=== PATIENT | male | born 1945 | race Hispanic/Latino ===

== ENCOUNTER 2018-05-08 06:25 | Day surgery (SDC) | payer MEDICARE ==
[~2018-05-08 06:25] MED LIST: ADRENALIN ONE; XYLOCAINE MPF 1% INFILTRATI ONE
[2018-05-08] MEDS ORDERED: TETRACAINE 0.5% ONE (07:20)
[2018-05-08] MEDS: VIGAMOX OD SCH ×3 (07:20→07:30)
--- NOTE | 2018-05-08 07:34 | Anesthesia Consultation ---
Anesthesia Consult and Med Hx Date of service: 05/08/18 - Airway Anesthetic Teeth Evaluation: Good ROM Head & Neck: Adequate Mental/Hyoid Distance: Adequate Mallampati Class: Class III Intubation Access Assessment: Possibly Difficult - Pulmonary Exam CTA: Yes - Cardiac Exam Cardiac Exam: RRR - Pre-Operative Health Status ASA Pre-Surgery Classification: ASA1 Proposed Anesthetic Plan: MAC - Pulmonary Hx Smoking: No Hx Asthma: No Hx Respiratory Symptoms: No - Cardiovascular System Hx Hypertension: No Hx Heart Attack/AMI: No - Central Nervous System Hx Seizures: No CVA: No Hx Psychiatric Problems: No - Gastrointestinal Hx Gastroesophageal Reflux Disease: No - Endocrine Hx Renal Disease: No Hx Liver Disease: No Hx Insulin Dependent Diabetes: No Hx Non-Insulin Dependent Diabetes: No Hx Thyroid Disease: No - Other Systems Hx Alcohol Use: Yes (Occas) 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 MAC vs GA w/ LMA pending surgeon preference.
--- NOTE | 2018-05-08 07:35 | Anesthesia Day of Surgery ---
Anesthesia Day of Surgery - Day of Surgery Patient Examined: Yes Patient H&P Reviewed: Yes Patient is NPO: Yes
[2018-05-08] MEDS ORDERED: SUBLIMAZE ONE (08:28)
[2018-05-08] MEDS ORDERED: VERSED ONE ×2 (08:28→09:39)
[2018-05-08] MEDS ORDERED: ZOFRAN IV PRN (09:30)
[2018-05-08] MEDS ORDERED: SUBLIMAZE IV PRN (09:30)
[2018-05-08] MEDS ORDERED: ROBINUL ONE (09:33)
[2018-05-08] MEDS ORDERED: ANCEF ONE (09:36)
[2018-05-08] MEDS ORDERED: DECADRON ONE (09:36)
[2018-05-08] MEDS ORDERED: BSS OD ONE (09:40)
[2018-05-08] MEDS ORDERED: XYLOCAINE MPF 1% INFILTRATI ONE (09:42)
[2018-05-08] MEDS ORDERED: DUOVISC VISCOELASTIC INTRAOCULA ONE (09:48)
[2018-05-08] MEDS ORDERED: BSS PLUS IO ONE (09:48)
[2018-05-08] MEDS ORDERED: PRED FORTE 1% OD SCH (10:00)
[2018-05-08] MEDS ORDERED: TETRACAINE 0.5% OD SCH (10:00)
--- NOTE | 2018-05-08 10:35 | Operative Report ---
Operative Report Operative Report: PATIENT NAME: DATE OF : DATE OF SURGERY: 03/08/2019 PREOPERATIVE DIAGNOSIS: Fuchs' dystrophy right eye POSTOPERATIVE DIAGNOSIS: Same PROPOSED PROCEDURE: Endothelial keratoplasty with Descemets stripping/Penetrating keratoplasty, *right eye ADDITIONAL PROCEDURE: NONE OPERATIVE PROCEDURE: 1. Endothelial keratoplasty with Descemets stripping/Penetrating keratoplasty, right eye SURGEON: Mireya Leonard MD HEEL SEWER SURGEON: None ANESTHESIA: Monitored anesthesia care in combination with topical and intracameral anesthesia because of the established specific risk of reflux, arrhythmias, or anxiety attacks associated with ocular manipulation, as well as the difficulty of the early childhood education worker to manage such potentially catastrophic events while simultaneously attempting to complete the surgical procedure and was deemed necessary for the patient's safety to have an anesthesiologist was present during the procedure whenever possible. The anesthesiologist was utilized to regulate the intravenous sedation of the patient so the patient was cooperative yet not asleep in order for the patient to successfully maintain fixation of the eye on the operating light of the microscope. RAISIN WASHER: COMPLICATIONS: None ALLERGIES: Codeine Beef, PREOPERATIVE NOTE: The patient is a gentleman who has the diagnosis or diagnoses of Fuchs dystrophy. Examination of the posterior portion of the eyes by indirect ophthalmoscopy shows the optic nerve and retina to be normal. The patient has decompensation of the cornea with dysfunction and dystrophy of the corneal endothelium. Donor tissue will be used to replace the dysfunctional endothelium utilizing a penetrating technique into the anterior chamber. This complicated technique allows the patient to maintain structural integrity of the eye making it much more resistant to traumatic rupture than a standard keratoplasty. It also allows a larger than average surface area of transplanted endothelium which hopefully in the long run will allow for longer endothelial viability and success for the surgery. It also provides for faster visual recovery and less anisometropia than previous keratoplasty techniques. It is technically more difficult because of the complicated preparation of the donor tissue and insertion of the donor tissue into the anterior chamber with fixation of the tissue without direct suturing of the donor. This also provides an increased chance of dislocation of the donor tissue in the immediate postoperative period compared to standard keratoplasty techniques. This type of corneal transplant takes over twice as long as a standard corneal transplant. Moreover, the preparation and end of surgery are more time consuming for both the surgeon and staff: the blocking of the eye requires a longer setup time as noted, the procedure itself is more complex, and the patient needs to lay face up and flat in the recovery area for a specified period of time prior to discharge. Preoperatively, it was discussed with the patient that they could have either a standard corneal transplant or a variation of a penetrating keratoplasty where only the posterior layers of the cornea are transplanted. With this new technique, as with any corneal transplant, there is always the pos sibility that the surgery may need to be repeated; or, in this case, also repeated with a standard corneal transplant if the visual result is not satisfactory. However, some of the advantages of this current technique are much more rapid visual recovery and a tectonically stronger eye after surgery. PROGNOSIS: Excellent INDICATIONS FOR SURGERY: The patient is undergoing surgery with the hope of eliminating or improving these visual difficulties. OPERATIVE REPORT: The patient was taken into the preoperative area and evaluated medically and found from a systemic standpoint to be suitable for the planned surgery and anesthesia. The patient was then sedated and monitored by anesthesia. The patient was next taken into the operating room where they were positioned on the operating bed. They were given drops of topical anesthetic in the operative eye. Betadine was used to scrub the periorbital area, eyelids, adjacent cheek and forehead. The prepped area was dried with sterile gauze. The patient was draped, and a wire speculum was placed between the eyelids. The horizontal diameter of the cornea was measured with calipers to assist in determining the proper sizing of the trephination blade to be used for donor incision and for removal of the patients central Descemets membrane. PREPARATION OF DONOR TISSUE: Prior to surgery, the donor tissue was inspected and found to be adequate for the planned procedure. The involved eye bank provided the usual demographic information on the donor including age, cause of , necessary screening and blood work. The results were negative regarding possible transmission of diseases from the donor. Our inspection of the donor tissue showed no gross abnormalities. The patients donor cornea was prepared by the eye bank to separate the anterior and posterior portions of the cornea for the planned surgery. The cornea was inspected prior to surgery and found to be suitable and at the time of surgery was taken out of the storage solution and carefully centered on the cutting block with the centration based on the centration zoie that was made the eye bank on the external surface of the cornea-the stromal side. The donor tissue was removed from the tissue storage container by carefully removing it with forceps taking care not to touch the endothelial surface but only the scleral rim Suction was applied, the centration was rechecked to make sure it was perfectly centered. Once the size of the appropriate trephine was determined, the donor was punched with the trephine. The donor cornea was then covered with tissue storage solution and put aside for use later in the surgical procedure. The horizontal corneal diameter was measured and the overall condition of the eye was evaluated to determine which size of trephine would best provide for as large donor button as possible without compromising the angle structures or iris. Once the trephine size was chosen, it was used lightly to zoie the epithelium on the corneal surface to provide a reference for later placement of the donor tissue and for removal of Descemets membrane. This was the same trephine used to punch the donor tissue. Reopen old incision if corneal: The patient had previously had a clear corneal incision of 5.0 mm for corneal surgery. This incision was able to be opened by using a Sinskey hook to separate the superficial area of the wound. A 23-gauge needle hooked up to an infusion of balanced salt solution was inserted through the midperipheral cornea into the anterior chamber. This was used to maintain the anterior chamber while removing Descemets membrane. A modified Vasiliy-Gagan hook was next placed through the stab incision and the hook was used to score Descemets membrane in a circular fashion, essentially scoring a [place] about 1.0 mm smaller than the previously placed reference zoie by the trephine on the epithelium. A specially designed Descemets stripper/scraper was inserted into the eye and carefully extended across the anterior chamber in a manner not to empty the anterior chamber, to damage the iris, or to damage the lens. Starting at the nasal side of the anterior chamber, the stripper was used to catch Descemets membrane at the site of the scoring and the membrane was carefully stripped off the back surface of the cornea. The stripper was first pulled back centrally to loosen Descemets mem brane there and then to each side to help try and remove the central area of Descemets membrane which had been outlined by the scoring. The membrane was then pulled out of the eye through the incision. The removed Descemets membrane was placed on the outer surface of the cornea and carefully unfolded to make sure it was removed in its entirety and that no portion was left in the central cornea. Any indication of retained central membrane was followed by reinsertion of the stripper and further removal of retained membrane. Care was taken during both the scoring and stripping not to unduly push up into the overlying cornea as that can cause tearing of the corneal tissue, producing an irregular surface which can lead to decreased visual recovery and difficulty with adherence of the donor tissue to the recipient. Once it was confirmed that Descemets membrane was removed, the incision was extended with the sharp blade for its full length into the anterior chamber. The anterior chamber was reinflated with balanced salt solution. Funnel: The donor tissue was removed from the cutting block and transferred to the operative field. It was placed on the patients cornea so that the endothelium of the donor was facing up. The tissue storage solution and any blood or other material was allowed to flow off the donor tissue. A small amount of viscoelastic was then placed on the endothelial surface of the donor. Two forceps were then used to grasp an edge of the donor taking care not to actually touch the endothelium and the posterior portion of the donor, which had been previously dissected on the artificial anterior chamber, and the donor gently partially pulled apart about half of the posterior portion from the anterior portion. A Busin Funnel was brought into the operative field and the posterior portion of the donor was pulled onto it. Intraocular forceps were used to pull the tissue into the funnel, essentially making it fold over on itself endothelial side inward. The intraocular forceps were then introduced through a previously made peripheral corneal stab incision in the nasal cornea. The forceps were moved across the anterior chamber to the area of the 5.0 mm incision. The Busin funnel was inserted into the 5.0 mm wound. The forceps grasped the edge of the donor tissue and the tissue was pulled into the eye. Once inside the eye, the forceps released their hold and the funnel was removed. Using a 30-gauge needle, a small stab incision was made in the peripheral cornea and a small amount of air was injected within the folded-over piece of donor tissue in the eye. The air was slowly injected to unfold the donor endothelial side down. Once the donor had unfolded, the anterior chamber was completely filled with air. A Bernadette roller was used to massage the anterior surface of the cornea and to massage the donor tissue into the correct position. The massaging also helped to remove retained air or fluid caught between the donor and recipient tissue. Once the donor was in the correct position and no retained fluid or air was present between the donor and recipient, the timer was started and the anterior chamber was left completely filled with air for the designated time. OTHER SPECIFICS OF THE SURGICAL PROCEDURE: Trephine size: 8.5 mm Horizontal corneal diameter: 11.0 mm Estimated thickness of donor tissue: 65 Time anterior chamber was completely filled with air in the operating room while the donor cornea was allowed to hold in position without any manipulation or massagin minutes The patient laid face up and flat in the recovery room with a partial air bubble to help with further adherence of the donor cornea to the recipient cornea for the following length of time: 45minutes Needle reposition of the donor: The donor button of tissue could not be massaged into the correct position on the recipient cornea. Therefore, a 30- gauge needle was bent at its tip to form a right angle of the peripheral one- third to one-half of the beveled area. This needle was introduced into the anterior chamber and used to grasp the peripheral edge of the donor tissue and pull it into the correct position. Massage was then used to provide good apposition and centration of the tissue. SUBCONJUNCTIVAL INJECTIONS: Decadron 0.1 mL PF MEDICATIONS APPLIED AT END OF SURGERY: 1:1000 epinephrine, Vigamox Pred Forte DISCHARGE SUMMARY: The patient was released in stable condition. The patient and those with the patient were given a written sheet of postoperative instructions and counseling on any abnormal laboratory studies. The patient is to call immediately for difficulties and will otherwise see us in the morning at the office. Mireya Leonard M.D. Date cc: Dictated: Worksheets: Transcribed:
--- NOTE | 2018-05-08 10:37 | Short Stay Summary ---
Short Stay Documentation Date of service: 05/08/18 - History H&P: obtained from office - Allergies and Medications Current Medications: Allergies Beef Containing Products Allergy (Verified 05/06/18 11:26) Hives, swelling codeine Allergy (Verified 05/06/18 11:26) Itching Pork/Porcine Containing Products Allergy (Verified 05/06/18 11:26) Hives, swelling red dye Allergy (Verified 05/06/18 11:26) Hives Home Medications Medication Instructions Recorded Confirmed Last Taken Type Adult One Daily Multivit Tab 1 tab PO DAILY 05/08/18 05/08/18 05/07/18 History Cholecalciferol Vit D3 [Vitamin D3] 1 tab PO DAILY 05/08/18 05/08/18 05/07/18 History [place]-3 Fatty Acids/Fish Oil [Fish 1 each PO DAILY 05/08/18 05/08/18 05/07/18 History Oil 1,000 mg Capsule] Prednisolone Acetate/Pf 1 drop OS QID 05/08/18 05/08/18 05/08/18 05:00 History [Prednisolone Acet 1% Eye Drop] Active Medications Fentanyl (Sublimaze) 50 mcg IV Q5MIN PRN PRN Reason: Pain , Severe (7-10) Stop: 05/08/18 15:00 Moxifloxacin HCl (Vigamox) 1 drops OD Q5MIN ORI Stop: 05/10/18 06:57 Last Admin: 05/08/18 07:30 Dose: 1 drops Documented by: Ondansetron HCl (Zofran) 4 mg IV ONCE PRN PRN Reason: Nausea And Vomiting Stop: 05/08/18 15:00 Prednisolone Acetate (Pred Forte 1%) 1 drops OD QID [facility] - Brief post op/procedure progress note Date of procedure: 05/08/18 Pre-op diagnosis: Fuchs endothelial dystrophy right eye Post-op diagnosis: same Procedure: Descemet's stripping endothelial keratoplasty right eye Anesthesia: MAC, local Surgeon: [facility] TSE Estimated blood loss: minimal Pathology: none Condition: stable - Disposition Condition at discharge: Good Disposition: DC-01 TO HOME OR SELFCARE - Discharge Diagnoses (1) Fuchs endothelial corneal dystrophy type 1 Status: Resolved Short Stay Discharge Plan Follow up with: NATALIE WINKLER MD [Primary Care Provider] - 7 Days
[2018-05-08] MEDS ORDERED: IBUPROFEN PO ONE ×2 (13:15→13:30)
--- NOTE | 2018-05-08 14:19 | Post Anesthesia Evaluation ---
- Post Anesthesia Evaluation Patient Participated: Yes Airway Patent: Yes Stable Respiratory Function: Yes Nausea/Vomiting: No Temp > 96.8F: Yes Pain Manageable: Yes Adequeate Hydration: Yes Anesthesia Complications: No
[2018-05-08 18:52] VITALS: BP 118/66
== END 2018-05-08 13:35 | disposition home or self-care (01) ==
LOC: OR 06:25
DX: H18.51 Endothelial corneal dystrophy (principal); Z79.899 Other long term (current) drug therapy; Z91.041 Radiographic dye allergy status; Z88.5 Allergy status to narcotic agent; Z91.018 Allergy to other foods; Z72.89 Other problems related to lifestyle; Z98.42 Cataract extraction status, left eye; Z98.41 Cataract extraction status, right eye; Z85.819 Personal history of malignant neoplasm of unspecified site of lip, oral cavity, and pharynx; Z98.890 Other specified postprocedural states
CPT/HCPCS: 65756; 87075; 87116; J0171; J0690; J1100; J2250; J3010; V2785